=== PATIENT | male | born 2005 | race Caucasian/White ===

== ENCOUNTER 2025-06-10 22:18 | Emergency (ER) | payer OTHER ==
[2025-06-10 22:27] VITALS: BP 120/60; PULSE 57; RESP 17; TEMP 98.4; BMI 22.6
== END 2025-06-10 23:00 | disposition home or self-care (01) ==
LOC: FER 22:18
PROC: 0HQ1XZZ Repair Face Skin, External Approach (ICD-10-PCS; principal; 2025-06-10)
DX: S01.111A Laceration without foreign body of right eyelid and periocular area, initial encounter (principal); W03.XXXA Other fall on same level due to collision with another person, initial encounter; Y93.66 Activity, soccer
CPT/HCPCS: 99283-25